=== PATIENT | male | born 1960 | race Caucasian/White ===

== ENCOUNTER → 2025-04-29 08:03 | Outpatient (REF) | payer MEDICARE, OTHER, SELFPAY ==
[2025-04-29 08:41] LABS: Hematocrit 46.0 % (39.0-52.0); Hemoglobin 15.8 g/dL (13.0-18.0); Mean Corp Hgb Conc. 34.3 g/dL (33.0-37.0); Mean Corpuscular Volume 89.8 fL (80.0-94.0); Platelet Count 285 10^3/uL (130-400); Red Cell Dist. Width 11.9 % (11.5-14.5)
[2025-04-29 09:11] LABS: Blood Urea Nitrogen 23 mg/dl (9-20); Calcium 9.6 mg/dl (8.4-10.2); Carbon Dioxide 29 mmol/L (22-30); Chloride 103 mmol/L (98-107); Glucose 119 mg/dl (70-99); Potassium 4.1 mmol/L (3.5-5.1); Sodium 140 mmol/L (135-145); eGFR > 60.00
== END ==
LOC: SDSPAT 08:03
PROVIDERS: ATTENDING PHYSICIAN Surgery; FAMILY PHYSICIAN Family Medicine
DX: Z01.818 Encounter for other preprocedural examination (principal)
CPT/HCPCS: 36415; 80048; 85027

== ENCOUNTER 2025-05-16 06:14 | Day surgery (SDC) | payer MEDICARE, OTHER, SELFPAY ==
[2025-04-29 14:15] VITALS: BMI 23.5
[2025-05-16] VITALS (7 sets, daily range): BP systolic 121–158; BP diastolic 67–84; BMI 23.5
--- NOTE | 2025-05-16 06:55 | HP.FOC2 ---
Focused History & Physical
Chief Complaint
HPI:
Chief Complaint: Bilateral inguinal hernias
HPI / Indication for Planned Procedure: Patient is a 64-year-old male recently seen in outpatient surgical evaluation secondary to bilateral inguinal hernias. Patient had previously chosen to follow his hernias expectantly but the right side is
mildly symptomatic prompting surgical follow-up and now scheduling repair.
Relevant Past Medical History: Other (Hypertension, CAD/NM, type 2 diabetes, cardiac stents, hyperlipidemia, seasonal allergies)
Relevant Social History: Negative
Relevant Family History: Negative
Relevant Past Surgical History: Positive for (Cardiac catheterization)
Review of Systems
Review of Pertinent Systems: All Systems Negative
Medication
See Medication form for detailed medications: Yes
Medication List (including Herbals & OTC):
aspirin 81 mg tablet,delayed release 81 mg PO HS 05/09/25
atorvastatin 40 mg tablet 40 mg PO HS 05/09/25
dapagliflozin propanediol 10 mg tablet (Farxiga) 10 mg PO DAILY 05/09/25
hydrochlorothiazide 25 mg tablet 25 mg PO DAILY 05/09/25
metformin 500 mg tablet,extended release 24 hr 500 mg PO BID 05/09/25
metoprolol succinate 100 mg tablet,extended release 24 hr 100 mg PO DAILY 05/09/25
multivitamin 1 tab PO DAILY 05/09/25
ramipril 10 mg capsule 10 mg PO DAILY 05/09/25
tirzepatide 2.5 mg/0.5 mL subcutaneous pen injector (Mounjaro) 2.5 mg SC QWEEK 05/09/25
Medications Reviewed: Yes
Allergies and Reactions
Patient has Allergies: No
Noted Allergies and Reactions:
Allergy/AdvReac Type Severity Reaction Status Date / Time
No Known Allergies Allergy Verified 05/09/25 08:27
Pertinent Physical Exam
All Other Systems: Negative
Head/Neck: Normal
Lungs: Normal
Heart: Normal
Abdomen: Other (Bilateral inguinal hernias)
Extremities: Normal
Neurological: Normal
Diagnosis / Assessment
64-year-old male presenting for scheduled operative correction bilateral inguinal hernias
Plan / Procedure
Robotic assisted lap repair of bilateral inguinal hernias with mesh
Anesthesia/Sedation to be done by Anesthesia Provider: Yes
--- NOTE | 2025-05-16 07:03 | W.SUR.PREOP ---
Pre-Operative Surgical Note
-
I have examined this patient prior to the performance of the scheduled procedure.
The patient's condition is unchanged from the time of the current History and
Physical and the patient is able to undergo the scheduled procedure.
[2025-05-16] MEDS: TYLENOL 1000 MG PO (07:32)
[2025-05-16] MEDS: NORMOSOL-R/PLASMALYTE-A 1000 IV (07:32)
[2025-05-16 07:35] LABS: Glucose - Point of Care 130 mg/dl (70-99)
--- NOTE | 2025-05-16 10:26 | W.IMMPOSTOP ---
Addendum entered and electronically signed by Augusto Moran MD 05/16/25 10:58:
#[id number]
Original Note:
Surgical Immed Post Op Note
-
Primary Surgeon: Augusto Moran MD
Assisting Surgeon: Vianney García PA-C
Pre-op Diagnosis: Bilateral inguinal hernias
Post-op Diagnosis: Bilateral inguinal hernias; direct and indirect
Procedure Performed: Robotic assisted laparoscopic SHANI repair of bilateral inguinal hernias with mesh; 3D max large mid weight x 2
Anesthesia Type: GETA +0.25% Marcaine with epi
Specimen / Cultures: None
Estimated Blood Loss: 6 mL
Complications: None immediate
Operative Findings: Similar size bilateral predominantly direct inguinal hernias with indirect component as well. Right spermatic cord with small lipoma reduced but not excised. 3D max large mid weight mesh repair x 2 secured to Dony's ligament
with 2-0 Vicryl stitch x 2.
The assistance of Vianney García PA-C was required due to the complexity of the procedure. During the procedure Vianney García PA-C assisted with port placement, robotic instrumentation and suture material exchanges, and closure of the surgical incision
sites. I was present for the entirety of the operative procedure.
[2025-05-16 10:59] LABS: Glucose - Point of Care 152 mg/dl (70-99)
[2025-05-16] MEDS: ROXICODONE 5 MG PO (12:18)
== END 2025-05-16 12:20 | disposition home or self-care (01) ==
LOC: SDS 06:14
PROVIDERS: ATTENDING PHYSICIAN Surgery; FAMILY PHYSICIAN Family Medicine
DX: K40.20 Bilateral inguinal hernia, without obstruction or gangrene, not specified as recurrent (principal)
CPT/HCPCS: 49650; 82962; C1781